=== PATIENT | female | born 1960 | race Caucasian/White ===

== ENCOUNTER 2017-11-02 00:27 | Inpatient (IN) | payer BC ==
[~2017-11-02] VITALS: Ht 170.2 cm; Wt 95.7 kg
[2017-11-02 01:20] LABS: BASOPHIL (%) 0.7 % (0-1); BASOPHIL COUNT 0.1 K/uL (0-0.1); EOSINOPHIL (%) 1.3 % (0-5); EOSINOPHIL COUNT 0.1 K/uL (0-0.3); HEMATOCRIT 29.6 % (36.0-46.0); HEMOGLOBIN 9.8 G/DL (11.9-15.5); IMMATURE GRANULOCYTE (%) 0.8 % (0.0-0.7); LYMPHOCYTE (%) 25.5 % (15-42); LYMPHOCYTE COUNT 2.6 K/uL (1.0-2.8); MCH 30.1 PG (29.0-34.0); MCHC 33.1 G/DL (30.0-36.0); MCV 90.8 FL (83-99); MONOCYTE (%) 6.8 % (3-12); MONOCYTE COUNT 0.7 K/uL (0-0.8); NEUTROPHIL (%) 64.9 % (45-76); NEUTROPHIL COUNT 6.5 K/uL (1.8-6.4); NRBC (%) 0.2 /100 WBC (0-0); PLATELET COUNT 193 K/uL (156-360); RBC DIS.WIDTH-CV 14.6 % (11.8-14.6); RBC DIS.WIDTH-SD 47.9 % (39-53); RED BLOOD COUNT 3.26 M/uL (3.80-5.20)
[2017-11-02 01:33] LABS: ALBUMIN 3.8 g/dL (3.2-4.8); CHLORIDE 106 mEq/L (99-109); POTASSIUM 4.5 mEq/L (3.7-5.4); SODIUM 137 mEq/L (136-147)
[2017-11-02 01:35] LABS: GLUCOSE 260 mg/dL (70-99)
[2017-11-02 01:37] LABS: TOTAL BILIRUBIN 0.3 mg/dL (0.0-1.0)
[2017-11-02 01:39] LABS: ALKALINE PHOSPHATASE 88 IU/L (3-129); CREATININE 0.9 mg/dL (0.6-1.3); GFR ESTIMATE (CALCULATED) > 59 mL/min/
[2017-11-02 01:40] LABS: UREA NITROGEN (BUN) 25 mg/dL (9-23)
[2017-11-02 01:41] LABS: AST (GOT) 35 IU/L (2-34)
[2017-11-02 01:42] LABS: ALT (GPT) 34 IU/L (3-49)
[2017-11-02 01:49] LABS: TROP-I INTERPRETATION NEGATIVE; TROPONIN-I < 0.01 ng/mL (0.0-0.30)
[2017-11-02 02:12] LABS: APPEARANCE SL.HAZY ((CLEAR)); BILIRUBIN NEGATIVE; BLOOD NEGATIVE; COLOR YELLOW ((YELLOW)); GLUCOSE (STRIP) >=500; KETONES NEGATIVE; LEUKOCYTES LARGE; NITRITE POSITIVE; PROTEIN (STRIP) 30; SPECIFIC GRAVITY 1.022 (1.000-1.030); UROBILINOGEN 0.2 MG/DL (0.2-1.0)
[2017-11-02 02:50] LABS: BACTERIA 3+ /HPF; EPITHELIAL CELLS RARE /HPF; MUCUS 1+ /LPF; UCUL ADDED? YES; WHITE BLOOD CELLS 30-40 /HPF (0-5)
[2017-11-02] MEDS ORDERED: GLUCOPHAGE1000 MG PO (04:59)
[2017-11-02] MEDS ORDERED: DIOVAN80 MG PO (05:00)
[2017-11-02] MEDS ORDERED: ACID REDUCER75 MG PO (05:00)
[2017-11-02] MEDS ORDERED: ZOLOFT50 MG PO (05:00)
[2017-11-02] MEDS ORDERED: VITAMIN D35000 UNIT PO (05:01)
[2017-11-02] MEDS ORDERED: CINNAMON500 MG PO (05:02)
[2017-11-02] MEDS ORDERED: APPLE CIDER VI500 MG PO (05:02)
[2017-11-02 06:11] VITALS: BP 94/52
[2017-11-02 07:19] LABS: IRON 47 MCG/DL (35-150); TRANSFERRIN (TIBC) 308.7 mg/dL (215-380); TRANSFERRIN SATUR. 15 % (20-55)
[2017-11-02 08:04] LABS: HEMATOCRIT 30.2 % (36.0-46.0); HEMOGLOBIN 9.5 G/DL (11.9-15.5); MCV 93.8 FL (83-99)
[2017-11-02 08:09] LABS: FOLIC ACID (FOLATE) 7.6 NG/ML (5.0-22.0)
[2017-11-02 08:15] VITALS: BP 131/83
[2017-11-02 08:59] LABS: FERRITIN 11 NG/ML (10-291)
[2017-11-02 11:40] VITALS: BP 109/52
[2017-11-02] MEDS ORDERED: ERGOCALCIF50000 UNIT PO (12:20)
[2017-11-02] MEDS ORDERED: BAYER BACK & B1 EACH PO (12:20)
[2017-11-02 15:15] VITALS: BP 133/71
[2017-11-02 20:00] VITALS: BP 117/56
[2017-11-03] VITALS (7 sets, daily range): BP systolic 96–144; BP diastolic 52–65
[2017-11-03 05:54] LABS: HEMATOCRIT 26.3 % (36.0-46.0); HEMOGLOBIN 8.1 G/DL (11.9-15.5); MCH 28.6 PG (29.0-34.0); MCHC 30.8 G/DL (30.0-36.0); MCV 92.9 FL (83-99); PLATELET COUNT 166 K/uL (156-360); RBC DIS.WIDTH-CV 14.6 % (11.8-14.6); RBC DIS.WIDTH-SD 49.2 % (39-53); RED BLOOD COUNT 2.83 M/uL (3.80-5.20); WHITE BLOOD COUNT 8.6 K/uL (4.1-10.2)
[2017-11-03 08:54] LABS: CHLORIDE 108 MEQ/L (99-109); POTASSIUM 4.2 MEQ/L (3.7-5.4); SODIUM 140 MEQ/L (136-147)
[2017-11-03 09:00] LABS: GFR ESTIMATE (CALCULATED) > 59 mL/min/; GLUCOSE 161 mg/dL (70-99); UREA NITROGEN (BUN) 14 mg/dL (9-23)
[2017-11-03 09:01] LABS: CREATININE 0.3 MG/DL (0.6-1.3)
[2017-11-03 14:13] LABS: HEMATOCRIT 27.9 % (36.0-46.0); HEMOGLOBIN 8.8 G/DL (11.9-15.5); MCV 92.7 FL (83-99)
[2017-11-04 03:35] VITALS: BP 110/63
[2017-11-04 06:19] LABS: HEMATOCRIT 26.2 % (36.0-46.0); HEMOGLOBIN 8.2 G/DL (11.9-15.5); MCH 28.7 PG (29.0-34.0); MCHC 31.3 G/DL (30.0-36.0); MCV 91.6 FL (83-99); NRBC (%) 0.3 /100 WBC (0-0); PLATELET COUNT 157 K/uL (156-360); RBC DIS.WIDTH-CV 14.2 % (11.8-14.6); RBC DIS.WIDTH-SD 47.1 % (39-53); RED BLOOD COUNT 2.86 M/uL (3.80-5.20); WHITE BLOOD COUNT 5.9 K/uL (4.1-10.2)
[2017-11-04 06:40] LABS: GFR ESTIMATE (CALCULATED) > 59 mL/min/; UREA NITROGEN (BUN) 12 mg/dL (9-23)
[2017-11-04 06:44] LABS: CREATININE 0.8 MG/DL (0.6-1.3)
[2017-11-04 07:48] VITALS: BP 117/61
[2017-11-04] MEDS ORDERED: KEFLEX250 MG PO (09:44)
[2017-11-04] MEDS ORDERED: PANTOPRAZOLE SO40 MG PO (09:44)
[2017-11-04] MEDS ORDERED: CYANOCOBALAM1000 MCG PO (09:44)
[2017-11-04] MEDS ORDERED: FOLIC ACID1 MG PO (09:44)
== END 2017-11-04 10:56 | disposition home or self-care (01) | DRG 378 ==
LOC: EME 00:27 → EDOF 04:38 → 5SOUTH 04:38 → ENRESERV 04:39 → 5SOUTH 05:58
PROVIDERS: Emergency Medicine; Internal Medicine; Internal Medicine Gastroenterology; Physician Assistant
DX: K25.4 Chronic or unspecified gastric ulcer with hemorrhage (principal); K29.81 Duodenitis with bleeding; D51.9 Vitamin B12 deficiency anemia, unspecified; D50.0 Iron deficiency anemia secondary to blood loss (chronic); N39.0 Urinary tract infection, site not specified; B96.20 Unspecified Escherichia coli [E. coli] as the cause of diseases classified elsewhere; I95.9 Hypotension, unspecified; E11.9 Type 2 diabetes mellitus without complications; E86.0 Dehydration; R00.2 Palpitations; I10 Essential (primary) hypertension; K21.9 Gastro-esophageal reflux disease without esophagitis; F41.9 Anxiety disorder, unspecified; F32.9 Major depressive disorder, single episode, unspecified; E66.9 Obesity, unspecified; Z68.33 Body mass index [BMI] 33.0-33.9, adult; F17.210 Nicotine dependence, cigarettes, uncomplicated; Z79.84 Long term (current) use of oral hypoglycemic drugs; Z79.1 Long term (current) use of non-steroidal anti-inflammatories (NSAID)
CPT/HCPCS: 74177; 80048; 80053; 81003; 82565; 82607; 82728; 82746; 82948; 83540; 84466; 84484; 84520; 85014; 85018; 85025; 85027; 87077; 87086; 87186; 88305; 88342 TC; 93005; 99281; 99285; C9113; J0696; J1815; J2250; J3420; J7030

== ENCOUNTER 2017-11-11 18:39 | Inpatient (IN) | payer BC ==
[~2017-11-11] VITALS: Ht 170.2 cm; Wt 100.0 kg
[~2017-11-11 18:39] MED LIST: ACID REDUCER75 MG PO; APPLE CIDER VI500 MG PO; BAYER BACK & B1 EACH PO; CINNAMON500 MG PO; CYANOCOBALAM1000 MCG PO; DIOVAN80 MG PO; ERGOCALCIF50000 UNIT PO; FOLIC ACID1 MG PO; GLUCOPHAGE1000 MG PO; KEFLEX250 MG PO; PANTOPRAZOLE SO40 MG PO; VITAMIN D35000 UNIT PO; ZOLOFT50 MG PO
[2017-11-11 19:31] LABS: BASOPHIL (%) 0.3 % (0-1); EOSINOPHIL (%) 0.9 % (0-5); EOSINOPHIL COUNT 0.1 K/uL (0-0.3); HEMATOCRIT 15.6 % (36.0-46.0); HEMOGLOBIN 4.9 G/DL (11.9-15.5); IMMATURE GRANULOCYTE (%) 0.8 % (0.0-0.7); LYMPHOCYTE (%) 19.4 % (15-42); LYMPHOCYTE COUNT 2.3 K/uL (1.0-2.8); MCH 26.5 PG (29.0-34.0); MCHC 31.4 G/DL (30.0-36.0); MCV 84.3 FL (83-99); MONOCYTE (%) 5.9 % (3-12); MONOCYTE COUNT 0.7 K/uL (0-0.8); NEUTROPHIL (%) 72.7 % (45-76); NEUTROPHIL COUNT 8.4 K/uL (1.8-6.4); NRBC (%) 0.7 /100 WBC (0-0); PLATELET COUNT 197 K/uL (156-360); RBC DIS.WIDTH-CV 15.8 % (11.8-14.6); RBC DIS.WIDTH-SD 47.9 % (39-53); RED BLOOD COUNT 1.85 M/uL (3.80-5.20); WHITE BLOOD COUNT 11.6 K/uL (4.1-10.2)
[2017-11-11 19:33] LABS: ALBUMIN 3.7 g/dL (3.2-4.8)
[2017-11-11 19:34] LABS: CHLORIDE 104 mEq/L (99-109); POTASSIUM 3.8 mEq/L (3.7-5.4); SODIUM 135 mEq/L (136-147)
[2017-11-11 19:36] LABS: GLUCOSE 238 mg/dL (70-99); TOTAL PROTEIN 5.8 g/dL (6.4-8.3)
[2017-11-11 19:38] LABS: TOTAL BILIRUBIN 0.4 mg/dL (0.0-1.0)
[2017-11-11 19:39] LABS: ALKALINE PHOSPHATASE 69 IU/L (3-129)
[2017-11-11 19:40] LABS: CREATININE 0.8 mg/dL (0.6-1.3); GFR ESTIMATE (CALCULATED) > 59 mL/min/
[2017-11-11 19:41] LABS: AST (GOT) 22 IU/L (2-34); UREA NITROGEN (BUN) 16 mg/dL (9-23)
[2017-11-11 19:43] LABS: ALT (GPT) 20 IU/L (3-49)
[2017-11-11 20:59] LABS: TROP-I INTERPRETATION NEGATIVE; TROPONIN-I 0.05 ng/mL (0.0-0.30)
[2017-11-11 21:00] VITALS: BP 103/57
[2017-11-11 21:08] LABS: THYROTROPIN (TSH) 6.3 MIU/L (0.4-5.5)
[2017-11-11 21:19] VITALS: BP 94/55
[2017-11-11] MEDS ORDERED: FOLIC ACID1 MG PO (21:52)
[2017-11-11] MEDS ORDERED: CYANOCOBALAM1000 MCG PO (21:52)
[2017-11-11 22:19] VITALS: BP 106/57
[2017-11-12] VITALS (18 sets, daily range): BP systolic 99–158; BP diastolic 52–82
[2017-11-12 02:23] LABS: APPEARANCE CLEAR ((CLEAR)); BILIRUBIN NEGATIVE; BLOOD NEGATIVE; COLOR STRAW ((YELLOW)); GLUCOSE (STRIP) NEGATIVE; KETONES NEGATIVE; LEUKOCYTES TRACE; NITRITE NEGATIVE; PROTEIN (STRIP) NEGATIVE; SPECIFIC GRAVITY 1.009 (1.000-1.030); UROBILINOGEN 0.2 MG/DL (0.2-1.0)
[2017-11-12 02:43] LABS: BACTERIA RARE /HPF; EPITHELIAL CELLS RARE /HPF; MUCUS TRACE /LPF; RED BLOOD CELLS NONE SEEN /HPF (0-5); UCUL ADDED? NO; WHITE BLOOD CELLS 0-5 /HPF (0-5)
[2017-11-12 03:50] LABS: INTER. NORMALIZED RATIO 1.3
[2017-11-12 03:53] LABS: PTT 27.9 SEC (25-37)
[2017-11-12 04:04] LABS: MCV 83.7 FL (83-99)
[2017-11-12 04:06] LABS: HEMOGLOBIN 6.2 G/DL (11.9-15.5)
[2017-11-12 04:18] LABS: ALBUMIN 3.4 g/dL (3.2-4.8); CHLORIDE 104 mEq/L (99-109); POTASSIUM 3.7 mEq/L (3.7-5.4); SODIUM 136 mEq/L (136-147)
[2017-11-12 04:20] LABS: GLUCOSE 198 mg/dL (70-99); TOTAL PROTEIN 5.2 g/dL (6.4-8.3)
[2017-11-12 04:24] LABS: ALKALINE PHOSPHATASE 59 IU/L (3-129); CREATININE 0.8 mg/dL (0.6-1.3); GFR ESTIMATE (CALCULATED) > 59 mL/min/
[2017-11-12 04:25] LABS: UREA NITROGEN (BUN) 14 mg/dL (9-23)
[2017-11-12 04:26] LABS: AST (GOT) 20 IU/L (2-34)
[2017-11-12 04:27] LABS: ALT (GPT) 18 IU/L (3-49)
[2017-11-12 04:37] LABS: TOTAL BILIRUBIN 0.6 mg/dL (0.0-1.0)
[2017-11-12 08:08] LABS: HEMATOCRIT 22.2 % (36.0-46.0); HEMOGLOBIN 7.3 G/DL (11.9-15.5); MCV 84.1 FL (83-99)
[2017-11-12 10:51] LABS: LYME DISEASE SEROLOGY SCREEN NEGATIVE (NEGATIVE)
[2017-11-12 13:24] LABS: HEMATOCRIT 21.7 % (36.0-46.0); HEMOGLOBIN 6.9 G/DL (11.9-15.5); MCV 84.8 FL (83-99)
[2017-11-12 18:00] LABS: HEMATOCRIT 24.1 % (36.0-46.0); HEMOGLOBIN 7.6 G/DL (11.9-15.5)
[2017-11-13 00:53] LABS: HEMOGLOBIN 7.9 G/DL (11.9-15.5); MCV 84.5 FL (83-99)
[2017-11-13 05:11] VITALS: BP 145/69
[2017-11-13 07:22] VITALS: BP 109/62
[2017-11-13 11:30] VITALS: BP 121/69
[2017-11-13 15:49] VITALS: BP 122/61
[2017-11-13 16:29] LABS: HEMATOCRIT 23.8 % (36.0-46.0); HEMOGLOBIN 7.6 G/DL (11.9-15.5); MCV 85.6 FL (83-99)
[2017-11-13 19:15] VITALS: BP 120/64
[2017-11-14] VITALS (10 sets, daily range): BP systolic 121–137; BP diastolic 58–76
[2017-11-14 05:45] LABS: HEMATOCRIT 25.5 % (36.0-46.0); HEMOGLOBIN 7.7 G/DL (11.9-15.5); MCH 25.9 PG (29.0-34.0); MCHC 30.2 G/DL (30.0-36.0); MCV 85.9 FL (83-99); NRBC (%) 0.5 /100 WBC (0-0); PLATELET COUNT 147 K/uL (156-360); RBC DIS.WIDTH-CV 14.9 % (11.8-14.6); RBC DIS.WIDTH-SD 46.7 % (39-53); WHITE BLOOD COUNT 5.6 K/uL (4.1-10.2)
[2017-11-14 05:48] LABS: RED BLOOD COUNT 2.97 M/uL (3.80-5.20)
[2017-11-14 06:09] LABS: ALBUMIN 3.6 G/DL (3.2-4.8); ALKALINE PHOSPHATASE 58 IU/L (3-129); ALT (GPT) 24 IU/L (3-49); AST (GOT) 42 IU/L (2-34); CHLORIDE 104 MEQ/L (99-109); CREATININE 0.7 MG/DL (0.6-1.3); GFR ESTIMATE (CALCULATED) > 59 mL/min/; GLUCOSE 155 mg/dL (70-99); POTASSIUM 4.2 MEQ/L (3.7-5.4); SODIUM 138 MEQ/L (136-147); TOTAL BILIRUBIN 0.7 MG/DL (0.0-1.0); TOTAL PROTEIN 5.3 G/DL (6.4-8.3); UREA NITROGEN (BUN) 11 mg/dL (9-23)
[2017-11-15 05:27] VITALS: BP 124/76
[2017-11-15 05:47] LABS: BASOPHIL (%) 0.5 % (0-1); EOSINOPHIL COUNT 0.1 K/uL (0-0.3); HEMATOCRIT 27.2 % (36.0-46.0); HEMOGLOBIN 8.5 G/DL (11.9-15.5); IMMATURE GRANULOCYTE (%) 0.8 % (0.0-0.7); LYMPHOCYTE (%) 14.3 % (15-42); LYMPHOCYTE COUNT 0.9 K/uL (1.0-2.8); MCH 26.9 PG (29.0-34.0); MCHC 31.3 G/DL (30.0-36.0); MCV 86.1 FL (83-99); MONOCYTE (%) 6.2 % (3-12); MONOCYTE COUNT 0.4 K/uL (0-0.8); NEUTROPHIL (%) 76.2 % (45-76); NEUTROPHIL COUNT 4.6 K/uL (1.8-6.4); NRBC (%) 0.3 /100 WBC (0-0); PLATELET COUNT 140 K/uL (156-360); RBC DIS.WIDTH-SD 47.4 % (39-53); RED BLOOD COUNT 3.16 M/uL (3.80-5.20)
[2017-11-15 06:05] LABS: CHLORIDE 105 MEQ/L (99-109); CREATININE 0.8 MG/DL (0.6-1.3); GFR ESTIMATE (CALCULATED) > 59 mL/min/; GLUCOSE 152 mg/dL (70-99); MAGNESIUM 2.3 mg/dl (1.3-2.7); POTASSIUM 3.6 MEQ/L (3.7-5.4); SODIUM 140 MEQ/L (136-147); UREA NITROGEN (BUN) 10 mg/dL (9-23)
[2017-11-15 07:10] VITALS: BP 143/71
[2017-11-15 11:16] VITALS: BP 126/61
[2017-11-15] MEDS ORDERED: NICOTINE PATCH1 EAC1 TD (12:09)
[2017-11-15] MEDS ORDERED: DIOVAN80 MG PO (12:10)
[2017-11-15] MEDS ORDERED: BIAXIN500 MG PO (12:17)
[2017-11-15] MEDS ORDERED: AMOXICILLIN500 MG PO (12:17)
== END 2017-11-15 13:38 | disposition home or self-care (01) | DRG 812 ==
LOC: EME 18:39 → 4EAST 11-12 00:16 → EDOF 11-12 00:16 → ENRESERV 11-12 00:17 → 4EAST 11-12 01:10
PROVIDERS: Internal Medicine; Physician Assistant
DX: D62 Acute posthemorrhagic anemia (principal); K25.9 Gastric ulcer, unspecified as acute or chronic, without hemorrhage or perforation; K29.80 Duodenitis without bleeding; K64.8 Other hemorrhoids; K63.5 Polyp of colon; K22.9 Disease of esophagus, unspecified; F32.9 Major depressive disorder, single episode, unspecified; F41.9 Anxiety disorder, unspecified; F17.200 Nicotine dependence, unspecified, uncomplicated; B96.81 Helicobacter pylori [H. pylori] as the cause of diseases classified elsewhere; K21.9 Gastro-esophageal reflux disease without esophagitis; E03.9 Hypothyroidism, unspecified; E66.9 Obesity, unspecified; N39.0 Urinary tract infection, site not specified; E11.9 Type 2 diabetes mellitus without complications; E53.8 Deficiency of other specified B group vitamins; K74.60 Unspecified cirrhosis of liver; K76.0 Fatty (change of) liver, not elsewhere classified; I11.0 Hypertensive heart disease with heart failure; I50.9 Heart failure, unspecified; Z82.5 Family history of asthma and other chronic lower respiratory diseases; Z80.1 Family history of malignant neoplasm of trachea, bronchus and lung; Z87.11 Personal history of peptic ulcer disease; Z79.84 Long term (current) use of oral hypoglycemic drugs; Z68.33 Body mass index [BMI] 33.0-33.9, adult
CPT/HCPCS: 71045; 71046; 74176; 80048; 80053; 81003; 82948; 83735; 83880; 84443; 84484; 85014; 85018; 85025; 85027; 85610; 85730; 86618; 86850; 86900; 86901; 86920; 88305; 93005; 94799; 99281; 99285; C9113; J1815; J1940; J7030; P9016